=== PATIENT | male | born 1965 | race Two or more races ===

== ENCOUNTER 2017-05-12 10:15 | Emergency (ER) | payer SELFPAY ==
[2017-05-12 11:26] LABS: HEMATOCRIT 42.8 % (39.0-50.0); HEMOGLOBIN 14.5 g/dl (14.0-18.0); IMMATURE GRANULOCYTES 0.2 % (0.0-1.0); MEAN CELL VOLUME 90.9 fL CALC (80.0-100.0); MEAN CORPUSCULAR HGB 30.8 pG CALC (26.0-32.0); MEAN CORPUSCULAR HGB CONC 33.9 g/L CALC (32.0-36.0); NEUT# 2.81 thou/uL (1.82-7.42); RED BLOOD COUNT 4.71 mill/uL (4.70-6.10); RED CELL DISTRI WIDTH 12.7 % (11.5-15.5)
[2017-05-12 11:30] LABS: ALBUMIN 4.2 g/dL (3.2-5.0); ALKALINE PHOSPHATASE 59 u/l (38-126); AMYLASE 69 u/l (30-110); ANION GAP 15 (6-22 (CALC)); BILIRUBIN, TOTAL 1.8 mg/dL (0.0-1.4); BUN 12 mg/dL (9-20); BUN/CREATININE RATIO 15 (12-20 (CALC)); CARBON DIOXIDE 24 mmol/l (22-30); CHLORIDE 106 mmol/l (95-108); CREATININE 0.8 mg/dL (0.7-1.3); GFR > 60 ML/MIN (>=60 (CALC)); GFR FOR AFR.AMER. > 60 ML/MIN (>=60 (CALC)); GLUCOSE 102 mg/dL (75-110); LIPASE 217 u/l (23-300); POTASSIUM 4.6 mmol/l (3.5-5.1); SGOT/AST 112 u/l (17-59); SGPT/ALT 115 u/l (21-72); SODIUM 140 mmol/l (137-146); TOTAL PROTEIN 7.8 g/dL (6.3-8.2)
[2017-05-12 11:41] LABS: MYOGLOBIN 62 ng/mL (0 - 121)
[2017-05-12 12:13] LABS: URINE BLOOD DIPSTICK NEGATIVE (NEGATIVE); URINE CLARITY CLEAR; URINE COLOR YELLOW; URINE GLUCOSE - DIPSTICK NEGATIVE (NEGATIVE); URINE KETONE 15 mg/dL (NEGATIVE); URINE LEUK ESTERASE NEGATIVE (NEGATIVE); URINE NITRITE - DIPSTICK NEGATIVE (Negative); URINE PROTEIN - DIPSTICK NEGATIVE (NEG-TRACE)
[2017-05-12 12:16] LABS: URINE BILIRUBIN - DIPSTICK SMALL (NEGATIVE)
[2017-05-12] MEDS ORDERED: ZOFRAN ODT4 MG PO (14:08)
[2017-05-12 14:22] VITALS: BP 138/79
== END 2017-05-12 14:33 | disposition home or self-care (01) | DRG 392 ==
LOC: ED 10:15
PROVIDERS: Emergency Medicine
DX: R10.11 Right upper quadrant pain (principal)
CPT/HCPCS: Q9967; S0164

== ENCOUNTER 2017-05-15 17:56 | Emergency (ER) | payer SELFPAY ==
[~2017-05-15] VITALS: Ht 188 cm; Wt 70.0 kg
[~2017-05-15 17:56] MED LIST: ZOFRAN ODT4 MG PO
[2017-05-15 18:58] LABS: IMMATURE GRANULOCYTES 0.2 % (0.0-1.0); MEAN CELL VOLUME 91.3 fL CALC (80.0-100.0); MEAN CORPUSCULAR HGB 31.2 pG CALC (26.0-32.0); MEAN CORPUSCULAR HGB CONC 34.1 g/L CALC (32.0-36.0); NEUT# 2.56 thou/uL (1.82-7.42); RED BLOOD COUNT 4.49 mill/uL (4.70-6.10); RED CELL DISTRI WIDTH 12.5 % (11.5-15.5)
[2017-05-15 19:28] LABS: ALBUMIN 3.9 g/dL (3.2-5.0); ALKALINE PHOSPHATASE 55 u/l (38-126); ANION GAP 14 (6-22 (CALC)); BILIRUBIN, TOTAL 1.1 mg/dL (0.0-1.4); BUN 8 mg/dL (9-20); BUN/CREATININE RATIO 10 (12-20 (CALC)); CALCIUM 9.1 mg/dL (8.4-10.2); CARBON DIOXIDE 25 mmol/l (22-30); CHLORIDE 106 mmol/l (95-108); CREATININE 0.8 mg/dL (0.7-1.3); GFR > 60 ML/MIN (>=60 (CALC)); GFR FOR AFR.AMER. > 60 ML/MIN (>=60 (CALC)); GLUCOSE 89 mg/dL (75-110); POTASSIUM 4.2 mmol/l (3.5-5.1); SGOT/AST 50 u/l (17-59); SGPT/ALT 81 u/l (21-72); SODIUM 141 mmol/l (137-146)
[2017-05-15 19:53] VITALS: BP 128/86
== END 2017-05-15 19:52 | disposition home or self-care (01) | DRG 392 ==
LOC: ED 17:56
PROVIDERS: Emergency Medicine
DX: R10.9 Unspecified abdominal pain (principal)

== ENCOUNTER 2021-02-12 08:54 | Inpatient (IN) | payer BC ==
[~2021-02-12] VITALS: Ht 188 cm; Wt 66.0 kg
[~2021-02-12 08:54] MED LIST changes: +LEVOTHYROXIN50 MCG PO; +OMEPRAZOLE DR40 MG PO; +TRAMADOL HCL50 MG PO
--- NOTE | 2021-02-12 09:20 | NUR ---
PT TO ROOM WITH STEADY GAIT
[2021-02-12 10:18] LABS: HEMOGLOBIN 14.8 g/dl (14.0-18.0); IMMATURE GRANULOCYTES 0.2 % (0.0-5.0); MEAN CELL VOLUME 87.7 fL CALC (80.0-100.0); MEAN CORPUSCULAR HGB 28.8 pG CALC (26.0-32.0); MEAN CORPUSCULAR HGB CONC 32.9 g/dL CAL (32.0-36.0); NEUT# 2.34 thou/uL (1.82-7.42); RED BLOOD COUNT 5.13 mill/uL (4.70-6.10); RED CELL DISTRI WIDTH 12.4 % (11.5-15.5)
[2021-02-12] MEDS ORDERED: ELIQUIS5 MG PO (10:27)
[2021-02-12] MEDS ORDERED: METOPROL TAR25 MG PO (10:27)
[2021-02-12] MEDS ORDERED: OMEPRAZOLE20 MG PO (10:27)
--- NOTE | 2021-02-12 10:36 | NUR ---
PT STATES THAT HE CANNOT PROVIDE A URINE SAMPLE AT THIS TIME. FLUIDS RUNNING INTO PATENT IV. MEDS GIVEN. DENIES ANY NEEDS AT THIS TIME.
[2021-02-12 10:45] LABS: ALBUMIN 4.2 g/dL (3.2-5.0); ALKALINE PHOSPHATASE 66 u/l (38-126); AMYLASE 68 u/l (30-110); ANION GAP 12 (6-22 (CALC)); BUN 9 mg/dL (9-20); BUN/CREATININE RATIO 11 (12-20 (CALC)); CARBON DIOXIDE 28 mmol/l (22-30); CHLORIDE 103 mmol/l (95-108); CREATININE 0.8 mg/dL (0.7-1.3); GFR > 60 ML/MIN (>=60 (CALC)); GFR FOR AFR.AMER. > 60 ML/MIN (>=60 (CALC)); LIPASE 218 u/l (23-300); SGOT/AST 34 u/l (17-59); SODIUM 138 mmol/l (137-146); TOTAL PROTEIN 7.5 g/dL (6.3-8.2)
[2021-02-12 10:46] LABS: POTASSIUM 5.3 mmol/l (3.5-5.1)
--- NOTE | 2021-02-12 11:22 | NUR ---
ASKED PT FOR THE URINE SAMPLE NEVILLE ALONG WITH . PT STATES THAT HE WILL TRY. EARLIER UPON REASSESSMENT, HE STATES THAT HIS PAIN HAS DECREASED TO A 4 OR 5
[2021-02-12 11:45] LABS: URINE BILIRUBIN - DIPSTICK NEGATIVE (NEGATIVE); URINE BLOOD DIPSTICK NEGATIVE (NEGATIVE); URINE COLOR YELLOW; URINE GLUCOSE - DIPSTICK NEGATIVE (NEGATIVE); URINE KETONE NEGATIVE (NEGATIVE); URINE LEUK ESTERASE NEGATIVE (NEGATIVE); URINE PROTEIN - DIPSTICK NEGATIVE (NEG-TRACE); URINE UROBILINOGEN - DIPSTICK 0.2 E.U./dL (0.2)
[2021-02-12 11:47] LABS: URINE NITRITE - DIPSTICK NEGATIVE (Negative)
--- NOTE | 2021-02-12 12:20 | NUR ---
PATIENT RESTING IN STRETCHER IN NAD AND DENIES ANY NEEDS. CALL MCDOWELL WITHIN REACH.
--- NOTE | 2021-02-12 12:50 | NUR ---
CONTACT INFO FOR PATIENT FAMILY [phone].
--- NOTE | 2021-02-12 13:15 | NUR ---
sbar printed to floor
--- NOTE | 2021-02-12 14:24 | NUR ---
PT UPDATED ON PLAN OF CARE AND PENDING ADMISSION
--- NOTE | 2021-02-12 15:19 | NUR ---
GAVE REPORT TO [place]
--- NOTE | 2021-02-12 15:30 | NUR ---
PT TRANSPORTED TO MED SURG VIA W/C STABLE AND IN NO DISTRESS. CARE ASSUMED TO [place]
[2021-02-12 15:45] VITALS: BP 115/96
--- NOTE | 2021-02-12 16:30 | NUR ---
REPORT RECEIVED FORM ROSMERY IN ED, PT TRANSPORTED TO UNIT VIA W/C BY ED STAFF AND AMBULATED TO AND SETTLED IN BED. UNDERSTANDS SOME SYRIAC AND ABLE TO RESPOND APPROPRIATELY BUT FAMILY MEMBER WAS ON SPOT TO HEAR SOME OF THE QUESTION AND HAD TO TRANSLATE TO PT WHO HAD ALREADY ANSWERED INCORECTLY, THEN PT GAVE CORRECT ANSWERS. IVF INITIATED, TELE MONITOR PLACED, ORIENTED TO ROOM AND CALL MCDOWELL, WILL CONTINUE TO MONITOR.
--- NOTE | 2021-02-12 17:00 | NUR ---
FAMILY MEMBER IRA IS WILLING TO HAVE FAMILY STAY WITH PT DURING THE NIGHT IF ALLOWED, ADVISED NURSE WILL INQUIRE AND INFORM HIM, HE WAS LATER NOTIFIED WE WILL NOT ALLOW IT DUE TO THE STEPS WERE TAKING TO PREVENT THE SPREAD OF INFECTIONS.
[2021-02-12 20:28] VITALS: BP 119/90
--- NOTE | 2021-02-12 20:45 | NUR ---
2044-Pt in bed resting. No s/s of distress. Language line called spoke to take away attendant Pippa ([id number]) patient speaks Gujarati. Assessment performed. Pt denies pain. Left upper extremity weak. Consent form explained in great detail. Pt verbalizes to take away attendant that he understands and consents to surgical intervention. Consent placed on front of folder. Safety precautions in place. Pt will be NPO after midnight. I will continue to use take away attendant at each interaction
[2021-02-13] VITALS (14 sets, daily range): BP systolic 71–123; BP diastolic 43–84
--- NOTE | 2021-02-13 | NUR ---
0000-Pt in bed resting with eyes closed. Easily arousable. All fluids removed from bedside as pt is NPO after midnight. Zosyn hung and pt is stable with no s/s of distress. Bed low and locked. Call light and phone within reach. Will continue to monitor throughout this shift.
--- NOTE | 2021-02-13 04:57 | NUR ---
PT RESTING IN BED AT THIS TIME WITH HIS EYES CLOSED. NO COMPLAINTS VOICED, NO S/S OF DISTRESS. PT SCHEDULED FOR OPERATION TODAY AT AROUND 10AM, ATTEMPTED TO SHOWER PT WITH HIBICLENS AND WAS UNABLE TO LOCATE HIBICLENS. NO ORDER WAS WRITTEN FOR HIBICLENS. ASSIGNED FEED MILL OPERATOR TO ATTEMPT SHOWER WITH PT. SAFETY PRECAUTIONS IN PLACE. WILL MONITOR
--- NOTE | 2021-02-13 05:13 | NUR ---
NOTED THAT PT HAS NOT HAD AN EKG DONE PRE-OP, NEW ORDER SUBMITTED FOR EKG TO BE DONE BY RT THIS AM. WILL MONITOR
[2021-02-13 05:47] LABS: ANION GAP 11 (6-22 (CALC)); BUN 12 mg/dL (9-20); BUN/CREATININE RATIO 14 (12-20 (CALC)); CARBON DIOXIDE 25 mmol/l (22-30); CHLORIDE 106 mmol/l (95-108); CREATININE 0.9 mg/dL (0.7-1.3); GFR > 60 ML/MIN (>=60 (CALC)); GFR FOR AFR.AMER. > 60 ML/MIN (>=60 (CALC)); POTASSIUM 4.7 mmol/l (3.5-5.1); SODIUM 137 mmol/l (137-146)
--- NOTE | 2021-02-13 07:45 | NUR ---
PT WAS FOUND RESTING IN BED IN SEMI-WHITEHEAD'S POSITION;PT HAS FAMILY MEMBER IRA AT BEDSIDE AND IS HELPING WITH TRANSLATION AT THIS TIME;PT IS ALERT AND ORIENTED;VS AND ASSESSMENT WERE COMPLETED;PT IS REPORTING UPPER RIGHT QUADRANT PAIN;PT IS CURRENTLY PRE-OP AND NPO;HEART SOUNDS ARE IRREGULAR IN RATE AND RHYTHM;TELE IS IN PLACE;LUNG SOUNDS ARE CLEAR;RESPIRATIONS ARE EVEN AND UNLABORED ON RA;PT IS REPORTING NO COUGH;PT HAS ILAN HOSE IN PLACE;URINAL AT BS AND 200CC OF CLEAR YELLOW URINE WERE EMPTIED; SAFETY PRECAUTIONS IN PLACE;CALL LIGHT WITHIN REACH;BED IN LOWEST POSITION;NURSE CHIOMA IS CURRENTLY ASSIGNED TO PT AND WAS MADE AWARE OF ASSESSMENT AND VS;
--- NOTE | 2021-02-13 08:00 | NUR ---
PT IS RELAXING IN BED, NO DISTRESS NOTED. INFORMED THE RN THAT HE DID HAVE DISCOMFORT. IN RUQ. WAITING FOR SURGERY. VERY PLEASANT PT. BROTHER IN LAW HAS BEEN GIVEN PERMISSION FROM THE BOILER RIVETER TO ASSIST WITH INTERPRETING DUE TO DIFFERENT [facility] [place] DIALECT.
--- NOTE | 2021-02-13 09:44 | NUR ---
PT SCRUBBED WITH IRAIDA WITH MARCO IN LAW ASSISTANCE.
--- NOTE | 2021-02-13 09:56 | NUR ---
SPOKE WITH STEFANI ESPINOSA IN OR. WILL BE GETTING THE PT SOON. INFORMED OF THE BROTHER IN LAW. BEING HERE TO INTERPRET. HAS AN JAPANESE DIALECT.
--- NOTE | 2021-02-13 10:29 | NUR ---
OR STAFF CAME AND PICKED UP PT. VIA STRETCHER WITH STAFF. FAMILY IN THE ROOM AND INTERPRETING PERMISSION GRANTED FROM ODESSA ESPINOSA FOOTBALL COACH.
--- NOTE | 2021-02-13 12:30 | NUR ---
PT REMAINS IN OR.
--- NOTE | 2021-02-13 13:25 | NUR ---
PT RETURNED FROM OR VIA STRETCHER WITH STAFF. IV SITE IS FREE FROM REDNESS OR EDEMA. TELE MONITOR HAS BEEN PLACED BACK ON THE PT.
--- NOTE | 2021-02-13 13:55 | NUR ---
SPOKE WITH DR LINN RE: BP BEING LOW SINCE COMING FROM OR. ORDERS FOR A BOLUS TO BE GIVEN.
[2021-02-13 14:27] LABS: HEMATOCRIT 44.7 % (39.0-50.0); HEMOGLOBIN 14.4 g/dl (14.0-18.0)
--- NOTE | 2021-02-13 16:30 | NUR ---
PT IS RELAXING IN BED WITH NO DISTRESS NOTED. IV SITE IS FREE FROM REDNESS OR EDEMA. BP HAS BEEN LOW CONTINUING THE BOLUS. BP IS BETTER.
--- NOTE | 2021-02-13 18:40 | NUR ---
CALLED DR LINN RE: PT HRT RATE AND EKG CHANGES. WANTS ME TO CONSULT DR MONTOYA.
--- NOTE | 2021-02-13 18:42 | NUR ---
CALLED DR MONTOYA AND LEFT A MESSAGE FOR HIM TO CALL RE: CONSULT AND EKG CHANGES.
--- NOTE | 2021-02-13 19:30 | NUR ---
PATIENT RESTING IN BED AT THIS TIME WITH O2 VIA NASAL CANNULA IN PLACE. 02 SAT IS 98%. AWAKE ALERT AND ORIENTEDX3. PATIENT WITH NO COMPLAINST AT THIS TIME-SPOKE WITH DR. MONTOYA AND HE IS AWARE OF PATIENT ELEVATED HR. MEDICATED WITH LOPRESSOR ORDERED. IVF LR PATENT AND INFUSING VIA LAC SITE AT 100CC/HR. SITE IS HEALTHY AT THIS TIME. ABD IS SOFT WITH MULTIPLE SMALL INCISIONS INTACT WITH DERMABOND AND NO DRAINAGE. LUNGS ARE CLEAR. SCD'S IN PLACE. NO PERIPHERAL EDEMA. PULSES ARE PALPABLE. SAFETY PRECAUTIONS REINFORCED. CALL LIGHT IN REACH. WILL CONT TO MONITOR.
--- NOTE | 2021-02-13 22:15 | NUR ---
PATIENT RESTING IN BED AT THIS TIME. IVF PATENT AND INFUSING AT 100CC/HR VIA LAC SITE AT 100CC/HR. TELE MONITOR IN PLACE. HR IS 107 AT THIS TIME. MEDICATED FOR POST-OP PAIN WITH PERCOCET 5/325MG PO ORDERED FOR PAIN. SAFETY PRECAUTIONS REINFORCED. CALL LIGHT IN REACH. WILL CONT TO MONITOR.
[2021-02-14] VITALS (7 sets, daily range): BP systolic 111–133; BP diastolic 77–92
--- NOTE | 2021-02-14 00:36 | NUR ---
PATIENT VOIDED 100CC SHANTELLE URINE IN THE URINAL. ASSISTED PATIENT OOB TO THE BR TO ATTEMPT TO VOID AGAIN. UNSTEADY ON HIS FEET. UNABLE TO VOID ANY MORE AT THIS TIME. ASSISTED BACK TO THE BED. BLADDER SCAN WAS DONE TO REVEAL 217CC AT THIS TIME. IVF PATENT AND INFUSING AT 100CC/HR. TAKING ONLY SIPS OF PO FLUIDS AT THIS TIME. O2 VIA NASAL CANNULA IN PLACE. SCD'S IN PLACE. SAFETY PRECAUTION REINFORCED. CALL LIGHT IN REACH. WILL CONT TO MONITOR.
--- NOTE | 2021-02-14 04:03 | NUR ---
PATIENT RESTING IN BED AT THIS TIME-EYES CLOSED AND RESPS ARE EVEN AND UNLABORED. IVF PATENT AND INFUSING AT 100CC/HR. VOIDED 200CC OF SHANTELLE URINE IN URINAL. TELE MONITOR IN PLACE. LAST HR WAS 110. CALL LIGHT IN REACH. WILL CONT TO MONITOR.
[2021-02-14 05:12] LABS: HEMATOCRIT 40.1 % (39.0-50.0); HEMOGLOBIN 13.4 g/dl (14.0-18.0); IMMATURE GRANULOCYTES 0.4 % (0.0-5.0); MEAN CORPUSCULAR HGB 29.1 pG CALC (26.0-32.0); MEAN CORPUSCULAR HGB CONC 33.4 g/dL CAL (32.0-36.0); NEUT# 4.2 thou/uL (1.82-7.42); RED BLOOD COUNT 4.61 mill/uL (4.70-6.10); RED CELL DISTRI WIDTH 12.3 % (11.5-15.5)
--- NOTE | 2021-02-14 07:45 | NUR ---
REPORT RECEIVED FROM JESÚS BLOCK. PT RESTING IN BED ON RIGHT SIDE WITH EYES CLOSED; AWAKENS TO VERBAL STIMULI; DROWSY AND ORIENTED X 3. ONE FAMILY MEMBER AT BEDSIDE. PT DENIES PAIN CURRENTLY; RESPIRATIONS EVEN AND UNLABORED ON ROOM AIR; SPO2 98%. DENIES SOB AND NAUSEA. ABDOMEN SOFT WITH TENDERNESS; LAP SITES APPEAR HEALTHY WITH NO SIGNS OF INFECTION. SCDS TO BLE. HEART RATE CURRENTLY 88 AT REST; RHYTHM IS REGULAR DURING AUSCULTATION AND PALPATION. HEART RATE DOES INCREASE TO 116 AFTER ASSESSMENT, BUT REMAINS REGULAR. LR INFUSING AT 100 ML/HR WITHOUT DIFFICULTY; #20 TO LAC APPEARS HEALTHY. POC REVIEWED; PT ENCOURAGED TO VERBALIZE CONCERNS. STATES UNDERSTANDING. SAFETY MEASURES IN PLACE. CALL LIGHT WITHIN REACH.
--- NOTE | 2021-02-14 08:45 | NUR ---
CONFIRMED WITH VENEER CLIPPER HELPER PT REMAINS IN AFIB; HEART RHYTHM AGAIN IRREGULAR.
--- NOTE | 2021-02-14 10:54 | NUR ---
DR. MONTOYA AND AT BEDSIDE.
--- NOTE | 2021-02-14 11:59 | NUR ---
DR. LINN AT BEDSIDE TO DISCUSS POC WITH PT AND BROTHER.
--- NOTE | 2021-02-14 13:11 | NUR ---
RESTARTED ON ELIQUIS AT THIS TIME PER MD. DOSE ADMINISTERED.
--- NOTE | 2021-02-14 19:24 | NUR ---
PATIENT AWAKE ALERT AND ORIENTEDX3 RESTING IN BED AT THIS TIME. NO COMPLAINTS AT THIS TIME. DENIES ANY PAIN OR NAUSEA AT THIS TIME. ABD IS DISTENDED BUT SOFT WITH BS+. MULTIPLE SMALL INCISIONS INTACT WITH DERMABOND WITH NO DRAINAGE NOTED. TELE MONITOR IN PLACE. SALINE LOCK TO LAC INTACT AND APPEARS HEALTHY. SAFETY PRECAUTIONS REINFORCED. CALL LIGHT IN REACH. WILL CONT TO MONITOR.
--- NOTE | 2021-02-14 20:15 | NUR ---
PATIENT RESTING IN BED AT THIS TIME. VOIDED 300CC OF YELLOW URINE IN URINAL. TELE MONITOR READING ST-121. MEDICATED WITH SCHEDULED METOPROLOL 50MG PO SCHEDULED. MEDICATED WITH PERCOCET 5/325 FOR PAIN. SAFETY PRECAUTIONS REINFORCED. CALL LIGHT IN REACH. WILL CONT TO MONITOR.
--- NOTE | 2021-02-14 21:30 | NUR ---
PATIENT RESTING IN BED-CONT TO RUN ST 120'S ON TELE. CALL PLACED TO DR. LINDSAY VERGARAING ELEVATED HR. NEW ORDERS RECEIVED AND FAXED TO . WILL MEDICATE SOON PROFILED ON EMAR. 2136-RECIEVED CALLL FROM CATRACHITO IN ER PATIENT NOW SHOWING A-FIB 150-RESTING IN BED. NO COMPLAINTS OF CHEST PAIN OR PALPATATIONS 2141- PATIENT NOW SHOWING A-FIB 120'S. AWAITING TO PROFILE MEDS ON EMAR 2148-PATIENT IS NOW SHOWING ST-120 ON TELE PER CATRACHITO IN ER. CALL PLACED TO REGROGERING PROFILING MEDS ON EMAR. STATES THAT THEY WILL"DO IT RIGHT NOW". 2214-PATIENT RESTING IN BED-NO COMPLAINTS OF CHEST PAIN OR PALPATATIONS. NO SOB NOTED. MEDICATED WITH LOPRESSOR 5MG SLOW IVP ORDERED VIA [facility] SITE 2245-TELE MONITOR IS NOW SHOWING ST-115. WILL CONT TO MONITOR.
--- NOTE | 2021-02-14 23:00 | NUR ---
PATIENT RESTING IN BED AT THIS TIME-TELE READING ST AT THIS TIME AFTER RECIEVING METOPROLOL 5MG IVP. NO COMPLAINTS AT THIS TIME. CALL LIGHT IN REACH. WILL CONT TO MONITOR.
--- NOTE | 2021-02-15 03:18 | NUR ---
PATIENT RESTING IN BED AT THIS TIME WITH EYES CLOSED. RESPS EVEN AND UNLABORED. TELE MONITOR IN PLACE-STILL ST-120. SALINE LOCK TO LAC INTACT. CALL LIGHT IN REACH, WILL CONT TO MONITOR.
[2021-02-15 04:20] VITALS: BP 114/75
--- NOTE | 2021-02-15 04:26 | NUR ---
PATIENT RESTING IN BED-STILL TELE READING 120. MEDICATED WITH METOPROLOL 5MG IVP ORDERED VIA LEFT AC IV SITE. TELE MONITOR REMAINS IN PLACE. CALL LIGHT IN REACH. WILL CONT TO MONITOR.
[2021-02-15 05:37] LABS: HEMATOCRIT 43.7 % (39.0-50.0); HEMOGLOBIN 14.6 g/dl (14.0-18.0); IMMATURE GRANULOCYTES 0.2 % (0.0-5.0); MEAN CELL VOLUME 87.1 fL CALC (80.0-100.0); MEAN CORPUSCULAR HGB 29.1 pG CALC (26.0-32.0); MEAN CORPUSCULAR HGB CONC 33.4 g/dL CAL (32.0-36.0); NEUT# 3.13 thou/uL (1.82-7.42); RED BLOOD COUNT 5.02 mill/uL (4.70-6.10); RED CELL DISTRI WIDTH 12.4 % (11.5-15.5)
[2021-02-15 05:47] LABS: ALKALINE PHOSPHATASE 41 u/l (38-126); ANION GAP 10 (6-22 (CALC)); BILIRUBIN, TOTAL 1.2 mg/dL (0.0-1.4); BUN 7 mg/dL (9-20); BUN/CREATININE RATIO 10 (12-20 (CALC)); CARBON DIOXIDE 26 mmol/l (22-30); CHLORIDE 105 mmol/l (95-108); CREATININE 0.7 mg/dL (0.7-1.3); GFR > 60 ML/MIN (>=60 (CALC)); GFR FOR AFR.AMER. > 60 ML/MIN (>=60 (CALC)); POTASSIUM 4.1 mmol/l (3.5-5.1); SGOT/AST 38 u/l (17-59); SODIUM 136 mmol/l (137-146)
[2021-02-15 05:53] LABS: TOTAL PROTEIN 5.8 g/dL (6.3-8.2)
--- NOTE | 2021-02-15 07:00 | NUR ---
SHIFT CHANGE REPORT, PT AWAKE AND ALERT RESTING IN BED, TELE MONITOR IN PLACE, DENIES PAIN/DISCOMFORT AT THIS TIME, ASSISTED OOB TO BR THEN TO RECLINER, FAMILY MEMBER IN ROOM AT THIS TIME, CALL MCDOWELL IN REACH.
[2021-02-15 07:26] VITALS: BP 124/89
--- NOTE | 2021-02-15 07:43 | NUR ---
STOVE MECHANIC JUST CALLED REPORTING HR UP 246 THEN DOWN TO 120, PT HAD JUST BEEN AMBULATING TO BR WHEN REPORT CALLED, ON ASSESSMENT PT APPEARS A-SYMPTOMATIC AND FAMILY MEMBER IS WITH HIM ASSISTING WITH DIRECTIONS. PT IS NOW SITTING IN RECLINER, HR FROM TELE MONITOR'S REPORT IS 123 NOW, WILL CONTINUE TO MONITOR.
[2021-02-15 11:47] VITALS: BP 114/83
--- NOTE | 2021-02-15 12:53 | NUR ---
RELAXING IN BED AT THIS TIME, HAS REFUSED ALL MEALS HERE AND HAS NOT EATEN SINCE ADMISSION, FAMILY MEMBER REQUESTED TO BRING HME FOOD IN AND WAS AUTHORISED, PT ATE ALL HOME MADE MEAL, MEAL WAS WITHIN QUALITY AND CONSISTENCY OF ORDER.
[2021-02-15 15:23] VITALS: BP 126/93
--- NOTE | 2021-02-15 16:00 | NUR ---
AMBULATED DOWN HALLWAY AND EJOYED OUTDOOR VIEW, ALL NEEDS ADDRESSED, WILL CONTINUE TO MONITOR.
--- NOTE | 2021-02-15 18:14 | NUR ---
PT ATE MEAL RAGINI IN BY FAMLY MEMBER, REFUSED TO EAT ANY AND ALL MEALS OFFERED HERE.
[2021-02-15 19:00] VITALS: BP 128/90
--- NOTE | 2021-02-15 19:30 | NUR ---
PATIENT RESTING IN BED AT THIS TIME-AWAKE ALERT AND ORIENTEDX3 WATCHING TV. HR TELE-126. MEDICATED WITH LOPRESSOR 5MG IVP VIA LEFT AC SITE-REMAINS HEALTHY WITH GOOD BLOOD RETURN. ABD IS SOFT-DERMABOND INTACT TO SMALL INCISIONS-NO DRAINAGE. NO REDNESS OR SWELLING. BS+-HAD BM TODAY. LUNGS ARE CLEAR. NO PERIPHERAL EDEMA NOTED. PULSES ARE PALPABLE. SCD'S IN PLACE. SAFETY PRECAUTIONS REINFORCED. CALL LIGHT IN REACH. WIULL CONT TO MONITOR.
--- NOTE | 2021-02-15 21:28 | NUR ---
PATIENT RESTING IN BED-CONT TO HAVE ELEVATED HR-ST-126. NO RELIEF FROM METOPROLOL IVP AND PO. STILL ST. CALL PLACED TO JIMI ANGUIANO APRN AND NEW ORDER FOR DIGOXIN RECIEVED. WILL MEDICATE PATIENT SOON PROFILED ON EMAR. WILL CONT TO MONITOR.
--- NOTE | 2021-02-15 22:08 | NUR ---
PATIENT RESTING IN BED AT THIS TIME-MEDICATED WITH DIGOXIN 0.125MG IVP ORDERED FOR ST-CURRENT TELE READING AFTER BEING MEDICATED IS ST-110. CALL LIGHT IN REACH. WILL CONT TO MONITOR.
--- NOTE | 2021-02-15 22:28 | NUR ---
RECIEVED CALL FROM JALYN IN ER-STATES THAT THE PATIENT IS NOW A-FLUTTER 84. PATIENT IS CURRENTLY SLEEPING IN BED. TELE MONITOR IN PLACE. CALL LIGHT IN REACH. WILL CONT TO MONITOR.
--- NOTE | 2021-02-16 01:14 | NUR ---
PATIENT RESTING IN BED AT THIS TIME POSITIONED ON RIGHT SIDE WITH EYES CLOSED. RESPS ARE EVEN AND UNLABORED. TELE MONITOR IN PLACE. LAST READING WAS A-FLUTTER 116. CALL LIGHT IN REACH. WILL CONT TO MONITOR.
[2021-02-16 04:00] VITALS: BP 111/84
--- NOTE | 2021-02-16 04:18 | NUR ---
PATIENT RESTING IN BED AT THIS TIME POSITIONED ON RIGHT SIDE WITH EYES CLOSED. RESPS ARE EVEN AND UNLABORED. TELE MONITOR IN PLACE. SALINE LOCK INTACT TO LAC SITE. CALL LIGHT IN REACH. WILL CONT TO MONITOR.
[2021-02-16 06:35] LABS: HEMATOCRIT 44.4 % (39.0-50.0); HEMOGLOBIN 14.8 g/dl (14.0-18.0); MEAN CELL VOLUME 85.7 fL CALC (80.0-100.0); MEAN CORPUSCULAR HGB 28.6 pG CALC (26.0-32.0); MEAN CORPUSCULAR HGB CONC 33.3 g/dL CAL (32.0-36.0); RED BLOOD COUNT 5.18 mill/uL (4.70-6.10); RED CELL DISTRI WIDTH 12.4 % (11.5-15.5)
[2021-02-16 06:56] LABS: ANION GAP 10 (6-22 (CALC)); BUN 5 mg/dL (9-20); BUN/CREATININE RATIO 7 (12-20 (CALC)); CARBON DIOXIDE 26 mmol/l (22-30); CHLORIDE 105 mmol/l (95-108); CREATININE 0.7 mg/dL (0.7-1.3); GFR > 60 ML/MIN (>=60 (CALC)); GFR FOR AFR.AMER. > 60 ML/MIN (>=60 (CALC)); MAGNESIUM 1.9 mg/dL (1.6-2.3); POTASSIUM 4.1 mmol/l (3.5-5.1); SODIUM 138 mmol/l (137-146)
--- NOTE | 2021-02-16 08:44 | NUR ---
PT AMBULATING HALLWAY, STEADY GAIT OBSERVED. PT ASSISTED BACK TO BED TO COMPLETE ASSESSMENT, BROTHER IN LAW AT BEDSIDE TO HELP WITH INTERPRETATION NEEDS; VISITATION APPROVED BY Anca PIMENTEL AND [place]. A&O. NO DISTRESS NOTED. PT DENIES ANY PAIN AT THIS TIME. X4 LAPAROSCOPIC INCISIONS NOTED TO ABD. ILAN HOSES IN PLACE. HR SUSTAINING IN THE 120'S PER ED MONITORING. DR MURILLO NOTIFIED, CHANGES TO MEDICATIONS IN PLACE. PT AND FAMILY MEMBER EDUCATED ON CHANGES AND ON DIGOXIN. BOTH VERBALIZED UNDERSTANDING. NO OTHER NEEDS AT THIS TIME. IV HEALTHY AND PATENT. CALL LIGHT WITHIN REACH.
--- NOTE | 2021-02-16 09:08 | NUR ---
Patient is screened for PT intervention and no needs are identified at this time
--- NOTE | 2021-02-16 09:25 | NUR ---
DR MURILLO AND Mikayla ARNDT INSTALLER HELPER AT BEDSIDE DISCUSSING POC
--- NOTE | 2021-02-16 12:00 | NUR ---
Mikayla JOHNSON APRN AT BEDSIDE FOR CARDIOLOGY CONSULT
[2021-02-16 12:19] VITALS: BP 103/73
--- NOTE | 2021-02-16 12:20 | NUR ---
DR LINN AT BEDSIDE
--- NOTE | 2021-02-16 12:35 | NUR ---
PT AMBULATING HALLWAY. STEADY GAIT OBSERVED.
--- NOTE | 2021-02-16 13:49 | NUR ---
ELECTROMECHANICAL ENGINEER AT BEDSIDE
[2021-02-16 15:09] VITALS: BP 123/91
--- NOTE | 2021-02-16 16:50 | NUR ---
PT AMBULATING HALLWAY, STEADY GAIT OBSERVED.
[2021-02-16 18:45] VITALS: BP 120/82
--- NOTE | 2021-02-16 20:00 | NUR ---
PATIENT OOB COMING OUT OF THE BR-STATES THAT HE IS VOIDING WITHOUT ANY DIFFICULTY. STEADY ON HIS FEET. PATIENT IS ALERT AND ORIENTEDX3. SALINE LOCK TO LAC INTACT AND REMAINS HEALTHY AT THIS TIME. TELE MONITOR IN PLACE-LAST READING WAS [id number]. LUNGS ARE CLEAR. ABD IS SOFT WITH ACTIVE BS. 3 SMALL INCISIONS TO ABD INTACT WITH DERMABOND-NO DRAINAGE NOTED. ECCYMOSIS NOTED AROUNS UMBILICUS. NO PERIPHERAL EDEMA NOTED. PULSES ARE PALPABLE. PATIENT STATES THAT HIS APPETITE IS GOOD. SAFETY PRECAUTIONS REINFORCED. CALL LIGHT IN REACH. WILL CONT TO MONITOR.
[2021-02-16 23:44] VITALS: BP 126/78
--- NOTE | 2021-02-17 00:30 | NUR ---
PATIENT RESTING IN BED POSITIONED ON LEFT SIDE WITH EYES CLOSED. RESPS ARE EVEN AND UNLABORED. TELE MONITOR IN PLACE-LAST READU WAS FRLUTTER-76. SALINE LOCK TO LAC INTACT. CALL LIGHT IN REACH. WILL CONT TO MONITOR.
[2021-02-17 04:00] VITALS: BP 114/82
--- NOTE | 2021-02-17 04:56 | NUR ---
PATIENT RESTING IN BED WITH EYES CLOSED. RESPS ARE EVEN AND UNLABORED. TELE MONITOR IN PLACE-LAST READING WAS FLUTTER 101. SALINE LOCK TO LAC INTACT. CALL LIGHT IN REACH. WILL CONT TO MONITOR.
[2021-02-17 05:42] LABS: HEMATOCRIT 41.4 % (39.0-50.0); MEAN CELL VOLUME 85.4 fL CALC (80.0-100.0); MEAN CORPUSCULAR HGB 28.9 pG CALC (26.0-32.0); MEAN CORPUSCULAR HGB CONC 33.8 g/dL CAL (32.0-36.0); RED BLOOD COUNT 4.85 mill/uL (4.70-6.10); RED CELL DISTRI WIDTH 12.3 % (11.5-15.5)
[2021-02-17 06:04] LABS: ANION GAP 12 (6-22 (CALC)); BUN 8 mg/dL (9-20); BUN/CREATININE RATIO 10 (12-20 (CALC)); CARBON DIOXIDE 24 mmol/l (22-30); CHLORIDE 105 mmol/l (95-108); CREATININE 0.7 mg/dL (0.7-1.3); GFR > 60 ML/MIN (>=60 (CALC)); GFR FOR AFR.AMER. > 60 ML/MIN (>=60 (CALC)); MAGNESIUM 1.8 mg/dL (1.6-2.3); POTASSIUM 3.9 mmol/l (3.5-5.1); SODIUM 138 mmol/l (137-146)
--- NOTE | 2021-02-17 08:00 | NUR ---
SHIFT CHANGE REPORT, PT AWAKE ALERT AND ORIENTED AMBULATING IN ROOM, DENIES DISCOMFORT AND STATES HE WANTS TO FO HOME TODAY, TELE MONITOR IN PLACE, CALL MCDOWELL IN REACH AND BED LOCKED IN LOWEST POSITION.
[2021-02-17 08:04] VITALS: BP 111/79
[2021-02-17 10:30] VITALS: BP 114/74
--- NOTE | 2021-02-17 13:13 | NUR ---
Discharge instructions given. Patient verbalizes understanding of same. Discharged in stable condition via Wheelchair to Home with family. All belongings sent with pt.
== END 2021-02-17 12:46 | disposition home or self-care (01) | DRG 988 ==
LOC: ED 08:54 → ED-I 12:50 → ED 13:23 → MS2 13:24
PROVIDERS: Emergency Medicine; Nurse Practitioner; ADMIT Surgery; ATTEND Surgery
PROC: 0FT44ZZ Resection of Gallbladder, Percutaneous Endoscopic Approach (ICD-10-PCS; principal; 2021-02-13)
DX: I48.91 Unspecified atrial fibrillation (principal); K81.2 Acute cholecystitis with chronic cholecystitis; I10 Essential (primary) hypertension; E03.9 Hypothyroidism, unspecified; K21.9 Gastro-esophageal reflux disease without esophagitis; Z79.01 Long term (current) use of anticoagulants; Z20.822 Contact with and (suspected) exposure to COVID-19
CPT/HCPCS: J0131; J1160; J2710; J3475; S0164

== ENCOUNTER 2024-06-10 09:04 | Emergency (ER) | payer OTHER ==
[2024-06-10] VITALS (10 sets, daily range): BP systolic 112–136; BP diastolic 74–97
[~2024-06-10] VITALS: Ht 182.9 cm; Wt 68.0 kg
[~2024-06-10 09:04] MED LIST changes: +ELIQUIS5 MG PO; +METFORMIN500 M2 PO; +METOPROL TAR25 MG PO; +OMEPRAZOLE20 MG PO
[2024-06-10] MEDS ORDERED: ACETAMINOPHEN 500 MG TAB PO ONE (09:40)
[2024-06-10 09:59] LABS: BASO% 0.8 % (0-3); EOS% 0.4 % (0-8); HEMATOCRIT 44.7 % (39.0-50.0); HEMOGLOBIN 14.8 g/dl (14.0-18.0); LYMPH% 46.1 % (15-41); MEAN CORPUSCULAR HGB 30.8 pG CALC (26.0-32.0); MEAN CORPUSCULAR HGB CONC 33.1 g/dL CAL (32.0-36.0); NEUT# 2.05 thou/uL (1.82-7.42); NEUT% 41.7 % (42-76); RED BLOOD COUNT 4.81 mill/uL (4.70-6.10); RED CELL DISTRI WIDTH 11.7 % (11.5-15.5)
[2024-06-10 10:02] LABS: MEAN CELL VOLUME 92.9 fL CALC (80.0-100.0)
[2024-06-10 10:16] LABS: ALKALINE PHOSPHATASE 58 u/l (38-126); ANION GAP 9 (6-22 (CALC)); BILIRUBIN, TOTAL 1.2 mg/dL (0.2-1.3); BUN 8 mg/dL (9-20); BUN/CREATININE RATIO 10 (12-20 (CALC)); CARBON DIOXIDE 27 mmol/l (22-30); CHLORIDE 107 mmol/l (95-108); CREATININE 0.8 mg/dL (0.7-1.3); ESTIMATED GFR 103 ML/MIN (>=90 (CALC)); POTASSIUM 4.6 mmol/l (3.5-5.1); SGOT/AST 36 u/l (17-59); SODIUM 138 mmol/l (137-146)
[2024-06-10 10:20] LABS: ALBUMIN 4.5 g/dL (3.2-5.0); TOTAL PROTEIN 7.5 g/dL (6.3-8.2)
[2024-06-10] MEDS ORDERED: TRAMADOL HYDROC50 M1 PO (11:08)
[2024-06-10] MEDS ORDERED: FLEXERIL5 M1 PO (11:08)
== END 2024-06-10 11:12 | disposition home or self-care (01) | DRG 552 ==
LOC: ED 09:04
PROVIDERS: Family Medicine
DX: M54.6 Pain in thoracic spine (principal); I48.91 Unspecified atrial fibrillation; K21.9 Gastro-esophageal reflux disease without esophagitis